=== PATIENT | female | born 1955 | race Caucasian/White ===

== ENCOUNTER → 2016-11-13 | Outpatient (CLI) | payer BC ==
--- NOTE | 2016-11-13 16:06 | DI ---
LEFT WRIST, 11/13/2016 3:48 PM: Clinical History: Closed fracture of the distal end of the left radius with routine healing. Subseque nt encounter. Previous Exam: 10/19/2016. 3 views are submitted. The patient is status post ORIF of the fracture of the distal radius with zhou omic alignment and position following placement of a volar buttress plate. The fracture lucency is ba rely visible indicating progressive healing. Severe arthritic changes are present in the first carpom etacarpal joint. Reading: Status post ORIF of the impacted fracture of the distal radius. The fracture lucency is barely visibl e indicating progressive healing. Alignment and position are anatomic.
== END ==
LOC: ORTHO 15:56
PROVIDERS: ATTEND Orthopaedic Surgery
DX: S52.592E Other fractures of lower end of left radius, subsequent encounter for open fracture type I or II with routine healing (principal)
CPT/HCPCS: 73110

== ENCOUNTER → 2017-01-08 | Outpatient (CLI) | payer BC ==
--- NOTE | 2017-01-08 12:02 | DI ---
XR WRIST COMPLETE MIN 3VW,01/08/2017 9:21 AM: Clinical History: Left distal radial fracture. Previous Exam: November 13, 2016 Findings: 3 views the left wrist are obtained, and demonstrate screw and plate fixation of the left distal radi us. Diffuse osteopenia is noted. Degenerative changes are seen involving the first carpometacarpal joint. The surrounding soft tissues are unremarkable. Impression: 1. Healing left distal radial fracture unchanged from the prior exam. 2. Diffuse osteopenia and degenerative changes.
== END ==
LOC: ORTHO 09:28
PROVIDERS: ATTEND Orthopaedic Surgery
DX: S52.532E Colles' fracture of left radius, subsequent encounter for open fracture type I or II with routine healing (principal)
CPT/HCPCS: 73110

== ENCOUNTER → 2017-01-17 | Outpatient (CLI) | payer BC ==
[2017-01-17 07:15] LABS: HEMATOCRIT 43.2 % (37.0-47.0); HEMOGLOBIN 14.1 g/dL (12.0-16.0); MEAN CORPUSCULAR HEMOGLOBIN 28.1 PG (27-31); MEAN CORPUSCULAR HGB CONC 32.6 g/dL (33-37); MEAN CORPUSCULAR VOLUME 86.1 FL (81-99); RED BLOOD COUNT 5.02 10^6/uL (4.20-5.40)
[2017-01-17 07:31] LABS: CHOL/HDL RATIO 2.63 RATIO (0-4.0)
[2017-01-17 07:32] LABS: BLOOD UREA NITROGEN 24 mg/dL (7-22); BUN/CREATININE RATIO 34.28 (6-20); CALCIUM 9.5 mg/dL (8.7-10.7); EST GLOMERULAR FILTRATION > 60 (>60 ml/min/1.73m(2)); SERUM ALBUMIN 4.2 g/dL (3.5-4.8)
== END ==
LOC: LAB 06:58
PROVIDERS: ATTEND Family Medicine
DX: R42 Dizziness and giddiness (principal); E66.3 Overweight
CPT/HCPCS: 36415; 80053; 80061; 84443; 85027